=== PATIENT | female | born 1975 | race Caucasian/White ===

== ENCOUNTER 2019-05-06 09:32 | Emergency (ER) | payer OTHER ==
--- NOTE | 2019-05-06 10:08 | EDPHYS ---
Physician Documentation [facility] Name: Fauzia Damian Age: 43 yrs Sex: Female : 1975 Arrival Date: 05/06/2019 Time: 09:40 Bed 13 Private MD: ED Physician Fabien Gilbert HPI: 05/05 10:02 This 43 yrs old Female presents to ER via Ambulatory with complaints of heel rn pain. 10:02 The patient presents with pain. The complaints affect the left foot, right foot. Onset: rn The symptoms/episode began/occurred 1 month(s) ago. Modifying factors: The symptoms are alleviated by heat and rest the symptoms are aggravated by weight bearing. Severity of symptoms: At their worst the symptoms were moderate, in the emergency department the symptoms are unchanged. The patient has not experienced similar symptoms in the past. Reports bilateral heel pain without trauma, began when started working about 1 month ago, improves with heat, worse with cold, taking anti-inflammatories/neurontin, and not helping. No pain in rest of foot of calf. No fever or redness/warmth. . 10:02 Reports pharmacy told her to try compression socks, bought copper socks, used them for rn first time today, feet felt like they were on fire, took socks off, no rash, and now feels better without socks. . Historical: - Allergies: 09:48 PENICILLINS; ss 09:48 monistat; ss - Immunization history:: Adult Immunizations up to date. - Social history:: Smoking status: Patient reports the use of cigarette tobacco products, smokes one-half pack cigarettes per day. - Family history:: not pertinent. - Hospitalizations: : No recent hospitalization is reported. ROS: 10:02 MS/extremity: Positive for pain, Negative for paresthesias, puncture, rash, swelling, rn warmth, acute changes. 10:02 Constitutional: Negative for fever, chills, and weight loss, Eyes: Negative for injury, rn pain, redness, and discharge, Cardiovascular: Negative for chest pain, palpitations, and edema, Respiratory: Negative for shortness of breath, cough, wheezing, and pleuritic chest pain, Abdomen/GI: Negative for abdominal pain, nausea, vomiting, diarrhea, and constipation, MS/Extremity: Negative for injury and deformity, Skin: Negative for injury, rash, and discoloration, Neuro: Negative for headache, weakness, numbness, tingling, and seizure. Exam: 10:02 Constitutional: This is a well developed, well nourished patient who is awake, alert, rn and in no acute distress. Skin: Warm, dry with normal turgor. Normal color with no rashes, no lesions, and no evidence of cellulitis. MS/ Extremity: Pulses equal, no cyanosis. Neurovascular intact. Full, normal range of motion. Equal circumference. + focal tenderness bilateral heels, no redness/warmth. No open wounds or signs of puncture. Vital Signs: 09:46 BP 116 / 88; Pulse 70; Resp 15; Temp 97.4(TE); Pulse Ox 98% on R/A; Weight 68.49 kg; ss Height 5 ft. 4 in. (162.56 cm); Pain 6/10; 09:46 Body Mass Index 25.92 (68.49 kg, 162.56 cm) ss MDM: 09:54 Patient medically screened. rn 10:02 Differential diagnosis: arthritis, plantar fasciitis, calcaneal spur, neuropathy. Data rn reviewed: vital signs, nurses notes, and as a result, I will discharge patient. Counseling: I had a detailed discussion with the patient and/or guardian regarding: the historical points, exam findings, and any diagnostic results supporting the discharge/admit diagnosis, the need for outpatient follow up, to return to the emergency department if symptoms worsen or persist or if there are any questions or concerns that arise at home. Special discussion: I discussed with the patient/guardian in detail that at this point there is no indication for admission to the hospital. It is understood, however, that if the symptoms persist or worsen the patient needs to return immediately for re-evaluation. Based on the history and exam findings, there is no indication for further emergent testing or inpatient evaluation. I discussed with the patient/guardian the need to see the orientation and mobility specialist for further evaluation of the symptoms. ED course: No acute changes, no infection, recommended outpt f/u with podiatry. . Administered Medications: No medications were administered Disposition: 05/06/19 10:06 Discharged to Home. Impression: Pain in right foot, Pain in left foot. - Condition is Stable. - Discharge Instructions: Foot Pain. - Medication Reconciliation Form, Thank You Letter, Antibiotic Education, Prescription Opioid Use, Work release form form. - Follow up: Sam Grossman DPM; When: As needed; Reason: Recheck today's complaints, Re-evaluation by your physician. - Problem is an ongoing problem. - Symptoms are unchanged. Signatures: Fabien Gilbert MD MD rn Smirch, Shelby, RN RN Corrections: (The following items were deleted from the chart) 10:27 10:06 05/06/2019 10:06 Discharged to Home. Impression: Pain in right foot; Pain in left ss foot. Condition is Stable. Forms are Medication Reconciliation Form, Thank You Letter, Antibiotic Education, Prescription Opioid Use. Follow up: Sam Grossman; When: As needed; Reason: Recheck today's complaints, Re-evaluation by your physician. Problem is an ongoing problem. Symptoms are unchanged. rn
--- NOTE | 2019-05-06 10:08 | ER ---
Nurse's Notes [facility] Name: Fauzia Damian Age: 43 yrs Sex: Female : 1975 Arrival Date: 05/06/2019 Time: 09:40 Bed 13 Private MD: Diagnosis: Pain in right foot;Pain in left foot Presentation: 05/05 09:46 Chief complaint: Patient states: burning sensation to bilateral feet that occurred this morning approximately 10 minutes after patient put on "copper socks", for heel pain. Coronavirus screen: Patient denies fever greater than 100.4F, cough, shortness of breath, or difficulty breathing. Proceed with normal triage process. Ebola Screen: Patient denies exposure to infectious person. Patient denies travel to an Ebola-affected area in the 21 days before illness onset. Onset: The symptoms/episode began/occurred acutely. Anaphylaxis evaluation, no signs or symptoms of anaphylaxis were noted. Initial Sepsis Screen: Does the patient meet any 2 criteria? No. Patient's initial sepsis screen is negative. Does the patient have a suspected source of infection? No. Patient's initial sepsis screen is negative. Risk Assessment: Do you want to hurt yourself or someone else? Patient reports no desire to harm self or others. 09:46 Method Of Arrival: Ambulatory 09:46 Acuity: NOBLE 5 ss Historical: - Allergies: 09:48 PENICILLINS; ss 09:48 monistat; ss - Immunization history:: Adult Immunizations up to date. - Social history:: Smoking status: Patient reports the use of cigarette tobacco products, smokes one-half pack cigarettes per day. - Family history:: not pertinent. - Hospitalizations: : No recent hospitalization is reported. Screenin:51 Abuse screen: Denies threats or abuse. Denies injuries from another. Nutritional ph screening: No deficits noted. Tuberculosis screening: No symptoms or risk factors identified. Fall Risk None identified. Assessment: 10:00 General: Appears in no apparent distress. comfortable, well groomed, Behavior is calm, ph cooperative, appropriate for age, Denies fever, feeling ill. Pain: Complains of pain in right foot and left foot Quality of pain is described as burning. Neuro: Level of Consciousness is awake, alert, obeys commands, Oriented to person, place, time, situation. Cardiovascular: Capillary refill < 3 seconds in bilateral fingers Patient's skin is warm and dry. Respiratory: Airway is patent Respiratory effort is even, unlabored, Breath sounds are clear bilaterally. Derm: Skin is intact, Skin is pink, warm \\T\\ dry. Musculoskeletal: Circulation, motion, and sensation intact. Range of motion: intact in all extremities. Vital Signs: 09:46 BP 116 / 88; Pulse 70; Resp 15; Temp 97.4(TE); Pulse Ox 98% on R/A; Weight 68.49 kg; ss Height 5 ft. 4 in. (162.56 cm); Pain 6/10; 09:46 Body Mass Index 25.92 (68.49 kg, 162.56 cm) ED Course: 09:40 Patient arrived in ED. mr 09:47 Triage completed. ss 09:48 Arm band placed on left wrist. ss 09:50 Antonia Howard, RN is Primary Nurse. ph 09:52 Patient has correct armband on for positive identification. Bed in low position. Call ph light in reach. Side rails up X 1. Pulse ox on. NIBP on. Door closed. Noise minimized. Warm blanket given. 09:54 Fabien Gilbert MD is Attending Physician. rn 10:06 Sam Grossman DPM is Referral Physician. rn 10:25 No provider procedures requiring assistance completed. Patient did not have IV access ph during this emergency room visit. Administered Medications: No medications were administered Outcome: 10:06 Discharge ordered by . rn 10:27 Patient left the ED. ss 10:27 Discharged to home ambulatory. ph 10:27 Condition: good 10:27 Discharge instructions given to patient, Instructed on discharge instructions, follow up and referral plans. medication usage, Demonstrated understanding of instructions, follow-up care. Signatures: Mcclure, Nelly salazar Fabien Gilbert MD MD rn Smirch, Shelby, RN RN Antonia Howard RN RN ph
[2019-05-06 10:36] VITALS: BP 116/88; TEMP 97.4; O2SAT 98
== END 2019-05-06 10:27 | disposition home or self-care (01) ==
LOC: ER 09:32
DX: M79.672 Pain in left foot (principal); M79.671 Pain in right foot; F17.210 Nicotine dependence, cigarettes, uncomplicated; Z88.0 Allergy status to penicillin; Z88.3 Allergy status to other anti-infective agents
CPT/HCPCS: 99283